=== PATIENT | female | born 1995 | race Caucasian/White ===

== ENCOUNTER 2023-10-05 08:00 | Outpatient (CLI) | payer OTHER ==
[2023-10-06 09:53] LABS: BILIRUBIN,URINE NEGATIVE (NEGATIVE); GLUCOSE, URINE (UA) NEGATIVE (NEGATIVE); KETONES,URINE (UA) 15 mg/dL (NEGATIVE); LEUKOCYTE ESTERASE, URINE NEGATIVE (NEGATIVE); NITRITE,URINE NEGATIVE (NEGATIVE); OCCULT BLOOD,URINE NEGATIVE (NEGATIVE); PROTEIN,URINE NEGATIVE (NEGATIVE); UROBILINOGEN,URINE 0.2 (NORMAL) E.U./dL (NORMAL)
[2023-10-06 10:13] LABS: BACTERIA,URINE Rare /HPF (None Seen); CLARITY,URINE CLEAR (CLEAR); RBC,URINE None Seen /HPF (0-5); SQUAMOUS EPITHELIAL CELL,UR RARE Squamous (<= Few); WBC,URINE 0-3 /HPF (0-5)
== END 2023-10-05 08:01 | disposition home or self-care (01) ==
LOC: LAB.WC 08:00
PROVIDERS: ATTEND Nurse Practitioner
DX: Z34.90 Encounter for supervision of normal pregnancy, unspecified, unspecified trimester (principal)
CPT/HCPCS: 81001; 87086

== ENCOUNTER 2023-10-16 10:37 | Outpatient (CLI) | payer OTHER ==
--- NOTE | 2023-10-16 11:48 | Ultrasound Report ---
PROCEDURE: OB First Trimester INDICATIONS: POSITIVE TEST OUTSIDE/PRIOR DATING DATA: Last menstrual period (LMP): 08/17/2023. LMP-based estimated date of delivery (ADALBERTO): 05/23/2024. First dating scan (date and location): Today's exam. Estimated date of delivery (ADALBERTO) from first dating scan: 05/26/2024. TECHNIQUE: Real-time scanning was performed of the fetus and maternal pelvic organs, with image documentation. COMPARISON: None. FINDINGS: Intrauterine gestational sac present. Embryo: Present, measuring 2.8 cm, corresponding to 7 weeks 6 days. Heart rate: 176 bpm. Other: No perigestational fluid collection. Measurement variability in dating: +/- 4 weeks by LMP, +/- 7 days by mean sac diameter (use before 6 weeks gestation if crown-rump length not able to be measured), +/- 5 days by crown-rump length (6-12 weeks gestation). Maternal organs: Ovaries appear within normal limits. IMPRESSION: Single living intrauterine at 7 weeks 6 days, ADALBERTO of 05/26/2024. Findings are concordant wit h clinical dating. Borderline tachycardia. Attention on follow-up. Reviewed by: Escobar Baird on 10/16/2023 11:47 AM PST Approved by: Escobar Baird on 10/16/2023 11:47 AM PST Station ID: [id number]
== END 2023-10-16 10:38 | disposition home or self-care (01) ==
LOC: DI 10:37
PROVIDERS: ATTEND Nurse Practitioner
DX: O36.8310 Maternal care for abnormalities of the fetal heart rate or rhythm, first trimester, not applicable or unspecified (principal); Z3A.01 Less than 8 weeks gestation of pregnancy

== ENCOUNTER 2023-11-02 08:00 | Outpatient (CLI) | payer OTHER ==
[2023-11-02 20:23] LABS: NEISSERIA GONORRHOEAE DNA NEGATIVE (NEGATIVE); TRICHOMONAS VAGINALIS DNA NEGATIVE (NEGATIVE)
[2023-11-02 20:31] LABS: CHLAMYDIA TRACHOMATIS DNA POSITIVE (NEGATIVE)
== END 2023-11-02 23:59 | disposition home or self-care (01) ==
LOC: LAB.WC 08:00
PROVIDERS: ATTEND Nurse Practitioner
DX: Z11.3 Encounter for screening for infections with a predominantly sexual mode of transmission (principal)
CPT/HCPCS: 87491; 87591; 87661

== ENCOUNTER 2023-11-02 11:32 | Outpatient (CLI) | payer OTHER ==
[2023-11-02 17:42] LABS: BASOPHILS # (AUTO) 0.1 10^3/uL (0.0-0.1); BASOPHILS % (AUTO) 0.5 %; EOSINOPHILS # (AUTO) 0.1 10^3/uL (0.0-0.7); EOSINOPHILS % (AUTO) 0.6 %; HCT - HEMATOCRIT 37.8 % (37.0-47.0); HGB - HEMOGLOBIN 12.5 g/dL (12.0-16.0); LYMPHOCYTES # (AUTO) 2.5 10^3/uL (1.5-3.5); LYMPHOCYTES % (AUTO) 20.4 %; MEAN CORPUSCULAR HEMOGLOBIN 31.8 pg (27.0-31.0); MEAN CORPUSCULAR HGB CONC 33.1 g/dL (32.0-36.0); MEAN CORPUSCULAR VOLUME 96.2 fL (81.0-99.0); MEAN PLATELET VOLUME 9.7 fL (7.9-10.8); MONOCYTES # (AUTO) 0.6 10^3/uL (0.0-1.0); MONOCYTES % (AUTO) 5.2 %; NEUTROPHILS % (AUTO) 72.9 %; PLT - PLATELET COUNT 320 10^3/uL (130-450); RED BLOOD COUNT 3.93 10^6/uL (4.20-5.40); RED CELL DISTRIBUTION WIDTH 12.1 % (12.0-15.0); WHITE BLOOD COUNT 12.4 x10^3/uL (4.8-10.8)
[2023-11-03 04:09] LABS: HBsAG SCREEN Negative (Negative)
[2023-11-03 06:10] LABS: RPR Non Reactive (Non Reactive)
[2023-11-03 07:10] LABS: HCV AB Non Reactive (Non Reactive); HIV SCREEN 4TH GENERATION Non Reactive (Non Reactive)
[2023-11-03 08:10] LABS: VARICELLA-ZOSTER AB IGG 595 index (Immune >165)
== END 2023-11-02 11:33 | disposition home or self-care (01) ==
LOC: LAB.N 11:32
PROVIDERS: ATTEND Nurse Practitioner
DX: Z34.90 Encounter for supervision of normal pregnancy, unspecified, unspecified trimester (principal)
CPT/HCPCS: 36415; 85025; 86592; 86762; 86787; 86803; 86850; 86900; 86901; 87340; 87389; 87491; 87591; 87661

== ENCOUNTER 2023-11-03 08:00 | Outpatient (CLI) | payer OTHER ==
[2023-11-03 20:34] LABS: NEISSERIA GONORRHOEAE DNA NEGATIVE (NEGATIVE); TRICHOMONAS VAGINALIS DNA NEGATIVE (NEGATIVE)
[2023-11-03 20:37] LABS: CHLAMYDIA TRACHOMATIS DNA POSITIVE (NEGATIVE)
== END 2023-11-03 23:59 | disposition home or self-care (01) ==
LOC: LAB.WC 08:00
PROVIDERS: ATTEND Nurse Practitioner
DX: Z11.3 Encounter for screening for infections with a predominantly sexual mode of transmission (principal)
CPT/HCPCS: 87491; 87591; 87661

== ENCOUNTER 2023-12-01 11:50 | Outpatient (CLI) | payer OTHER | END 2023-12-01 11:51 | disposition home or self-care (01) | LOC: LAB 11:50 | PROVIDERS: ATTEND Nurse Practitioner | DX: Z36.8A Encounter for antenatal screening for other genetic defects (principal) ==

== ENCOUNTER 2023-12-25 08:00 | Outpatient (CLI) | payer OTHER ==
[2023-12-25 20:25] LABS: CHLAMYDIA TRACHOMATIS DNA NEGATIVE (NEGATIVE); NEISSERIA GONORRHOEAE DNA NEGATIVE (NEGATIVE); TRICHOMONAS VAGINALIS DNA NEGATIVE (NEGATIVE)
== END 2023-12-25 23:59 | disposition home or self-care (01) ==
LOC: LAB.WC 08:00
PROVIDERS: ATTEND Nurse Practitioner
DX: O98.311 Other infections with a predominantly sexual mode of transmission complicating pregnancy, first trimester (principal); Z11.3 Encounter for screening for infections with a predominantly sexual mode of transmission
CPT/HCPCS: 87491; 87591; 87661

== ENCOUNTER 2024-01-03 09:07 | Outpatient (CLI) | payer OTHER ==
--- NOTE | 2024-01-03 21:11 | Ultrasound Report ---
PROCEDURE: OB 14+ Weeks INDICATIONS: SUPERVISION OF OUTSIDE/PRIOR DATING DATA: Last menstrual period (LMP): 08/17/2023. LMP-based estimated date of delivery (AADLBERTO): 05/23/2024. First dating scan (date and location): 10/16/2023. Estimated date of delivery (ADALBERTO) from first dating scan: 05/26/2024. The below data below was generated using the working ADALBERTO of 05/26/2024 TECHNIQUE: Ultrasound of the gravid uterus was performed and recorded. COMPARISON: None. FINDINGS: General: A single live intrauterine gestation is present. Presentation: Cephalic Placenta: Placental position is posterior without previa. Amniotic fluid index: 13.2 cm, 38.6% for gestational age. heart rate: 167 beats per minute. Maternal cervical canal: 3.2 cm long; normal length is 2.5 cm or more. biometrics: Biparietal diameter: 4.2 cm, 18 week 5 day, 11 percentile Head circumference: 15.8 cm, 18 week 5 day, 5 percentile Abdominal circumference: 13.7 cm 19 week 1 day, 22.8 percentile Femur length: 2.9 cm, 19 week 1 day, 20.2 percentile Estimated gestational age by working dates: 19 week 6 day Composite gestational age by current ultrasound: 18 week 6 day Estimated weight and percentile: 275 g, 12.6 percentile Measurement variability in biometric dating: +/- 10 days from 12-20 weeks gestation, +/- 2 weeks from 20-30 weeks gestation, +/- 3 weeks at 30 weeks gestation or more. Anatomic survey: Neuro: Ventricles are non-dilated at less than 10 mm. Cisterna magna is normal at 3-11 mm. Cerebel lum is normal in size and morphology. Nuchal skin fold: Normal at less than 6 mm between 14-20 weeks gestational age. Face: Nose and lips, facial profile are normal. Spine: No evidence for spina bifida. Heart: 4-chambered heart is present, with normal ventricular outflow tracts. Diaphragm: Diaphragm is intact. Stomach: Left-sided stomach is present. Kidneys: No hydronephrosis. Normal is less than 5 mm in 2nd trimester, less than 7 mm in 3rd trimester. Cord: 3-vessel cord has orthotopic insertion. Bladder: Normal in size. Extremities: All 4 extremities identified. Other: Not applicable. IMPRESSION: Single live intrauterine consistent with 18 week 6 day gestation by current ultrasound Normal anatomic survey Reviewed by: Spike Santos MD on 01/03/2024 8:10 PM [facility] Approved by: Spike Santos MD on 01/03/2024 8:10 PM [facility] Station ID: [id number]
== END 2024-01-03 09:08 | disposition home or self-care (01) ==
LOC: DI 09:07
PROVIDERS: ATTEND Nurse Practitioner
DX: Z34.92 Encounter for supervision of normal pregnancy, unspecified, second trimester (principal)

== ENCOUNTER 2024-02-20 10:13 | Outpatient (CLI) | payer OTHER ==
[2024-02-20 12:03] LABS: HCT - HEMATOCRIT 37.5 % (37.0-47.0); HGB - HEMOGLOBIN 12.3 g/dL (12.0-16.0); MEAN CORPUSCULAR HEMOGLOBIN 31.5 pg (27.0-31.0); MEAN CORPUSCULAR HGB CONC 32.8 g/dL (32.0-36.0); MEAN CORPUSCULAR VOLUME 96.2 fL (81.0-99.0); MEAN PLATELET VOLUME 10.2 fL (7.9-10.8); RED BLOOD COUNT 3.9 10^6/uL (4.20-5.40); RED CELL DISTRIBUTION WIDTH 12.2 % (12.0-15.0); WHITE BLOOD COUNT 9.5 x10^3/uL (4.8-10.8)
--- NOTE | 2024-02-20 15:43 | Ultrasound Report ---
PROCEDURE: OB Follow up INDICATIONS: POOR GROWTH OUTSIDE/PRIOR DATING DATA: Last menstrual period (LMP): 08/17/2023. LMP-based estimated date of delivery (ADALBERTO): 05/23/2024. First dating scan (date and location): 10/16/2023. Estimated date of delivery (ADALBERTO) from first dating scan: 05/26/2024. The below data below was generated using the clinical ADALBERTO of 05/23/2024 TECHNIQUE: Real-time scanning was performed of the fetus, with image documentation and biometric measurements. Endovaginal scanning: Not performed. COMPARISON: 01/03/2024. FINDINGS: General: A single living intrauterine gestation is present. Presentation: Variable Placenta: Placental position is posterior, without previa. Amniotic fluid index: 16.5 cm, within normal limits for gestational age. heart rate: 145 beats per minute. Maternal cervical canal: 4.2 cm long; normal length is 2.5 cm or more. biometrics: Biparietal diameter: 6.27 cm, 25 weeks 3 days, 7th percentile Head circumference: 23.4 cm, 25 weeks 2 days, 1.8 percentile Abdominal circumference: 22.7 cm, 27 weeks 1 day, 53.9 percentile Femur length: 4.73 cm, 25 weeks 6 days, 12.6 percentile Estimated gestational age from clinician: 26 weeks 5 days Composite gestational age from present scan: 26 weeks 0 days Estimated weight and percentile: None 126.3 g, 25th percentile Measurement variability in biometric dating: +/- 10 days from 12-20 weeks gestation, +/- 2 weeks from 20-30 weeks gestation, +/- 3 weeks at 30 weeks gestation or more. Other: Not applicable. IMPRESSION: 1. Living intrauterine at the junction between the second and third trimester 2. Current ultrasound age is 5 days less than clinical age based on LMP. 3. No evidence of complications. Reviewed by: Bimal Cintron MD on 02/20/2024 3:42 PM PDT Approved by: Bimal Cintron MD on 02/20/2024 3:42 PM PDT Station ID: [id number]
== END 2024-02-20 10:14 | disposition home or self-care (01) ==
LOC: DI 10:13
PROVIDERS: ATTEND Nurse Practitioner
DX: O36.5920 Maternal care for other known or suspected poor fetal growth, second trimester, not applicable or unspecified (principal); Z3A.26 26 weeks gestation of pregnancy
CPT/HCPCS: 36415; 82950; 85027

== ENCOUNTER 2024-04-01 08:00 | Outpatient (CLI) | payer OTHER ==
[2024-04-01 16:16] LABS: CREATININE,URINE 54.6 mg/dL; PROTEIN/CREATININE RATIO,URINE 0.2 (<=0.2)
== END 2024-04-01 23:59 | disposition home or self-care (01) ==
LOC: LAB.WC 08:00
PROVIDERS: ATTEND Nurse Practitioner
DX: R60.0 Localized edema (principal)
CPT/HCPCS: 82570; 84156

== ENCOUNTER 2024-04-26 08:00 | Outpatient (CLI) | payer OTHER | END 2024-04-26 23:59 | disposition home or self-care (01) | LOC: LAB.WC 08:00 | PROVIDERS: ATTEND Nurse Practitioner | DX: Z36.85 Encounter for antenatal screening for Streptococcus B (principal) | CPT/HCPCS: 87081; 87797 ==

== ENCOUNTER 2024-04-29 08:00 | Outpatient (CLI) | payer OTHER ==
[2024-04-29 22:22] LABS: CHLAMYDIA TRACHOMATIS DNA NEGATIVE (NEGATIVE); NEISSERIA GONORRHOEAE DNA NEGATIVE (NEGATIVE); TRICHOMONAS VAGINALIS DNA NEGATIVE (NEGATIVE)
== END 2024-04-29 23:59 | disposition home or self-care (01) ==
LOC: LAB.WC 08:00
PROVIDERS: ATTEND Nurse Practitioner
DX: Z11.3 Encounter for screening for infections with a predominantly sexual mode of transmission (principal)
CPT/HCPCS: 87491; 87591; 87661

== ENCOUNTER 2024-04-29 13:59 | Outpatient (CLI) | payer OTHER ==
--- NOTE | 2024-04-29 16:27 | Ultrasound Report ---
PROCEDURE: OB Follow up INDICATIONS: POOR GROWTH OUTSIDE/PRIOR DATING DATA: Last menstrual period (LMP): 08/17/2023. LMP-based estimated date of delivery (ADALBERTO): 05/23/2024. First dating scan (date and location): 10/16/2023. Estimated date of delivery (ADALBERTO) from first dating scan: 05/26/2024. The below data below was generated using the clinical ADALBERTO of 05/23/2024 TECHNIQUE: Real-time scanning was performed of the fetus, with image documentation and biometric measurements. Endovaginal scanning: Not performed. COMPARISON: 02/20/2024. FINDINGS: General: A single living intrauterine gestation is present. Presentation: Breech Placenta: Placental position is posterior, without previa. Amniotic fluid index: 8.7 cm, within normal limits for gestational age. heart rate: 140 beats per minute. Maternal cervical canal: 4 cm long; normal length is 2.5 cm or more. biometrics: Biparietal diameter: 7.8 cm, 31 weeks 2 days, less than 1st percentile Head circumference: 31.7 cm, 35 weeks 4 days, 7th percentile Abdominal circumference: 30.4 cm, 34 weeks 3 days, 9th percentile Femur length: 6.4 cm, 33 weeks 1 day, 1st percentile Estimated gestational age from initial scan: 36 weeks, 4 days Composite gestational age from present scan: 33 weeks, 4 days Estimated weight and percentile: 2284 g, 4th percentile Measurement variability in biometric dating: +/- 10 days from 12-20 weeks gestation, +/- 2 weeks from 20-30 weeks gestation, +/- 3 weeks at 30 weeks gestation or more. Other: Cord S/D ratios range from 3.1-3.3.. IMPRESSION: 1.Single live intrauterine consistent with 33 weeks and 4 days. 2.Estimated weight is in the 4th percentile. 3.Amniotic fluid index of 8.7 cm. 4.Umbilical cord Doppler S/D ratios range from 3.1-3.3. Reviewed by: Herson Kim MD on 04/29/2024 4:26 PM PDT Approved by: Herson Kim MD on 04/29/2024 4:26 PM PDT Station ID: [id number]
== END 2024-04-29 14:00 | disposition home or self-care (01) ==
LOC: DI 13:59
PROVIDERS: ATTEND Nurse Practitioner
DX: O36.5930 Maternal care for other known or suspected poor fetal growth, third trimester, not applicable or unspecified (principal); Z3A.33 33 weeks gestation of pregnancy; Z11.3 Encounter for screening for infections with a predominantly sexual mode of transmission
CPT/HCPCS: 87491; 87591; 87661

== ENCOUNTER 2024-05-08 21:45 | Inpatient (IN) | payer OTHER ==
[2024-05-08] MEDS: LACTATED RINGERS 1,000 ML IV ONE (00:15)
[2024-05-08] MEDS ORDERED: AZITHROMYCIN INJ 500 MG in SODIUM CHLORIDE 0.9% 250 ML IV ONE (22:05)
[2024-05-08] MEDS ORDERED: ceFAZolin (2G) 2 GM in SODIUM CHLORIDE 0.9% MINIBAG 100 ML IV ONE (22:05)
--- NOTE | 2024-05-08 22:09 | HISTORY & PHYSICAL EXAMINATION ---
Admit History - Visit Reason Visit Reason: Membranes rupture - : 1 Parity: 0 Complications This : positive: Other (Breech presentation) - Mother's Labs Mother's Blood Type: positive: O Mother's RH: positive: Positive GBS: positive: Group B Strep Positive Rubella Status: positive: Immune - Other Maternal History Other Maternal History: HPI: Patient is a 29-year-old G1, P0 at 37 weeks 6 days gestation presenting for rupture of membranes and breech presentation. She had rupture membranes shortly after 2100. She has good movement. No GAONA/BV or RUQP. No vaginal bleeding. Denies nausea and vomiting. Denies urinary urgency or dysuria. All other symptoms reviewed and were negative except per HPI. Course G1PO LMP: 08/17/2023 ADALBERTO by LMP: 05/23/2024 10/16/2023 / 7+6 /C/W dates Final ADALBERTO: 05/23/2024 FOB: Kirk Dinh Children: Lives with Kirk's 6 yo daugter sex: BABY BOY! Problems: Anxiety, ADHD (managed without medication)- CORNEL letter + chlamydia [id number], NEG chlamydia 12/25/23 Pre- Weight:158.8 BMI: 30.11 Blood type: O+ Rh: + Antibody: negative CBC: PLT 320 HCT 37.8 HGB 12.5 RUB: immune VZV: immune HBsAg: negative HepC: non-reactive RPR/AB-EIA: N-R HIV: non-reactive PAP: 2020 normal GC/CT: + and treated [id number] HSV:GENITAL HSV 1 Genetic testing: MaterniT- screen negative, AFP ordered 12/31/2023 Covid: infection over [place] (mild) Flu: received 11/02/2023 FAS: 01/03/2024 @18+6 Placenta: Posterior Cord: 3VC JEFFREY: 13.2 EFW: 275g 12.6%tile 50gm OGCT: 115 3HR GTT: TDAP: Given 03/04/24 Breast Pump: 03/04/24 3rd trimester PLT: 267 HCT 37.5 HGB 12.3 GBS: 04/26 Positive Delivery plan: Contraception: lo lo estrin PMH Vulvovaginal HSV Asthma PSH No previous surgeries OB History G1, P0 SH Denies tobacco, alcohol, drugs Family History Mother: Hypertension Maternal grandmother: Thyroid disorder Brother: Thyroid disorder Allergies No known drug allergies Medications Acyclovir 400 mg 3 times a day vitamins Physical exam: General: Alert, oriented, no acute distress Head: Normal cephalic atraumatic Eyes: PERRLA, extraocular motions intact. Respiratory: Normal rate of respiration. No accessory muscle use, normal respiratory effort. Cardiovascular: Regular rate and rhythm Abdomen: Gravid, nontender, nondistended Extremities: Normal range of motion Neuro: Oriented x3. Normal movements Psych: Appropriate mood and affect. Normal judgment and insight : Grossly ruptured SVE: 0/0/-3 FHT: 140 bpm baseline, moderate variability, accelerations present, occasional variable deceleration [place]: occasional Plan 29-year-old G1, P0 at 37 weeks 6 days gestation admitted for term labor with rupture of membranes with breech presentation 1. Breech presentation -Plan for primary low-transverse section for malpresentation and roel breech position. -2 g cefazolin, 500 mg azithromycin. - section was recommended. Risks, benefits and alternatives were discussed including but not limited to infection, bleeding that may require blood products or hysterectomy for life saving measures, injury to surrounding organs including but not limited to bowel, bladder, ureters, tubes and ovaries and/or the baby. Should injury occur it could require longer/additional surgery to repair. The patient stated understanding and desired to proceed. All questions were answered posed by patient. 2. Term labor/SROM 3. 37 weeks gestation 4. Vulvovaginal HSV -appropriately on prophylaxis Plan for Labor - Plan For Labor I expect patient to be DC'd or transferred within 96 hours.: Yes
[2024-05-08 22:35] LABS: BASOPHILS # (AUTO) 0.1 10^3/uL (0.0-0.1); BASOPHILS % (AUTO) 0.5 %; EOSINOPHILS # (AUTO) 0.2 10^3/uL (0.0-0.7); EOSINOPHILS % (AUTO) 1.5 %; HCT - HEMATOCRIT 37.1 % (37.0-47.0); HGB - HEMOGLOBIN 12.5 g/dL (12.0-16.0); LYMPHOCYTES # (AUTO) 3.3 10^3/uL (1.5-3.5); LYMPHOCYTES % (AUTO) 25.7 %; MEAN CORPUSCULAR HEMOGLOBIN 31.7 pg (27.0-31.0); MEAN CORPUSCULAR HGB CONC 33.7 g/dL (32.0-36.0); MEAN CORPUSCULAR VOLUME 94.2 fL (81.0-99.0); MEAN PLATELET VOLUME 11.8 fL (7.9-10.8); MONOCYTES # (AUTO) 0.9 10^3/uL (0.0-1.0); MONOCYTES % (AUTO) 6.9 %; NEUTROPHILS # (AUTO) 8.3 10^3/uL (1.5-6.6); NEUTROPHILS % (AUTO) 65.1 %; PLT - PLATELET COUNT 222 10^3/uL (130-450); RED BLOOD COUNT 3.94 10^6/uL (4.20-5.40); RED CELL DISTRIBUTION WIDTH 12.3 % (12.0-15.0); WHITE BLOOD COUNT 12.7 x10^3/uL (4.8-10.8)
[2024-05-08] MEDS ORDERED: METHYLERGONOVINE 0.2 MG/ML VIAL ONE (22:40)
[2024-05-08] MEDS ORDERED: CARBOPROST TROMETHAMINE 250 MCG/ML VIAL IM ONE (22:40)
[2024-05-08] MEDS ORDERED: miSOPROStoL 200 MCG TABLET ONE (22:40)
[2024-05-08] MEDS ORDERED: PHENYLEPHRINE 10 MG/ML VIAL ONE (22:40)
[2024-05-08] MEDS ORDERED: MORPHINE PF 5 MG/10 ML VIAL ONE (22:42)
[2024-05-08] MEDS ORDERED: fentaNYL 100 MCG/2 ML VIAL ONE (22:42)
[2024-05-08] MEDS ORDERED: OXYTOCIN 10 UNIT/ML VIAL ONE (23:10)
[2024-05-08] MEDS ORDERED: OXYTOCIN/SODIUM CHLORIDE 500 ML IV ONE (23:11)
[2024-05-08] MEDS ORDERED: DEXMEDETOMIDINE 200 MCG/2 ML VIAL ONE (23:16)
[2024-05-08] MEDS ORDERED: ONDANSETRON 4 MG/2 ML VIAL ONE (23:25)
[2024-05-08] MEDS ORDERED: KETOROLAC 30 MG/ML VIAL ONE (23:45)
[2024-05-08] MEDS ORDERED: ONDANSETRON ODT 4 MG TABLET TL PRN ×2 (23:50)
[2024-05-08] MEDS ORDERED: oxyCODONE 5 MG TABLET PO PRN (23:50)
[2024-05-08] MEDS ORDERED: OXYTOCIN/SODIUM CHLORIDE 500 ML IV PRN (23:50)
[2024-05-08] MEDS ORDERED: SIMETHICONE CHEW 80 MG TABLET PO PRN (23:50)
[2024-05-08] MEDS ORDERED: SODIUM CHLORIDE FLUSH 0.9% 10 ML SYRINGE IVP PRN (23:50)
--- NOTE | 2024-05-08 23:55 | OPERATIVE REPORT ---
Operative Report - General Admit Date: 05/08/24 Procedure Date: 05/08/24 Planned Procedure: Primary low-transverse section Pre-Op Diagnosis: Breech presentation, rupture of membranes Procedure Performed: Primary low-transverse section Post Op Diagnosis: Breech presentation, rupture of membranes - Procedure Note Primary Surgeon: Darío Ferrera MD Secondary Surgeon: BARRY Hein Anesthesia Provider: Helen Myers CRNA Anesthesia Technique: Spinal Pathology: None Estimated Blood Loss (mL): 600 Findings: Normal-appearing uterus, tubes, ovaries. Fetus in roel breech presentation with minimal fluid upon hysterotomy. Apgars of 8/9 - Other Other Information/Narrative: Patient was admitted at 37 weeks gestation for rupture of membranes and breech presentation. She had a category 2 tracing with intermittent variable decelerations. She was consented for section and proceeded to the OR. Prior to surgery, 2 g of cefazolin and 500 mg azithromycin were administered. The patient was taken to the operating room where regional anesthesia was found to be adequate. She was then prepared and draped in the usual sterile fashion in the dorsal supine position with a leftward tilt displacing the uterus. Shahid was draining to gravity. SCDs were on bilateral lower extremities. Time out was taken. A pfannenstiel skin incision was then made with the scalpel and carried through to the underlying layer of fascia. The fascia was incised in the midline and the incision extended laterally with the Jacinto scissors. The superior aspect of the facial incision was then grasped with the Micki clamps, elevated and the underlying rectus muscles dissected off sharply. Attention was then turned to the inferior aspect of this incision which in a similar fashion was grasped, elevated with the Micki clamps and the rectus muscle dissected off sharply. The rectus muscles were in the midline. The peritoneum identified, grasped with the pick-ups and entered sharply with the Metzenbaum scissors. The peritoneal incision was then extended superiorly and inferiorly with good visualization of the bladder. The bladder blade was inserted. The vesicouterine peritoneum was identified, grasped with the pick-ups, and entered sharply with Metzenbaum scissors. This incision was then extended laterally and the bladder flap created digitally. The bladder blade was reinserted. The lower uterine segment was identified and incised in a transverse fashion with the scalpel. The uterine incision was then extended bluntly laterally. There is minimal fluid upon hysterotomy. The bladder blade was removed. The fetus was in a roel breech presentation, and the pelvis was removed through the hysterotomy, the hips were held and brought through the hysterotomy. The legs extended upon reaching hysterotomy, the right arm was then rotated anteriorly, flexed, medial rotated, and extended through the hysterotomy. This was similarly done on the left side. head easily passed subsequently. The infants mouth and nose were bulb suctioned. The umbilical cord was clamped times two and cut. The was handed to the pediatric team. The placenta was removed with gentle traction. Oxytocin was added to the IV fluid and was allowed to run freely. The uterus was exteriorized and cleared of all clots and debris. The uterine incision was inspected and found to be without any extensions and was repaired with 0 Vicryl in a running, locked fashion. A second imbricating layer was performed. Upon inspection, the repaired hysterotomy was found to be hemostatic. The uterus was firm and returned to the abdomen. The gutters were cleared of all clots and debris. The muscle layer was examined and found to be hemostatic. The fascia was reapproximated with 0 Vicryl in a running fashion. The subcutaneous tissue was closed with 2-0 Vicryl. The skin was closed in a subcuticular fashion with 4-0 Monocryl. The patient tolerated the procedure well. Sponge, lap and needle counts were correct times three. The patient was taken to the recovery room in stable condition. I appreciate the assistance of Stephanie Brandon during this procedure, and the assistance in retraction, visualization, dissection, and overall assistance during the case were instrumental to the patient's wellbeing. weight: Pending
[2024-05-09] MEDS ORDERED: NALOXONE 0.4 MG/ML VIAL IVP PRN ×2 (00:23)
[2024-05-09] MEDS ORDERED: NALBUPHINE 10 MG/ML AMP IVP PRN (00:23)
[2024-05-09] MEDS ORDERED: MORPHINE 2 MG/ML CARPUJECT IVP PRN (00:23)
[2024-05-09] MEDS ORDERED: ATROPINE ABBOJECT 1 MG/10 ML SYRINGE IVP PRN (00:23)
[2024-05-09] MEDS ORDERED: diphenhydrAMINE INJ 50 MG/ML VIAL IVP PRN (00:23)
[2024-05-09] MEDS ORDERED: HYDROmorphone 0.5 MG/0.5 ML SYRINGE IVP PRN (00:23)
[2024-05-09] MEDS ORDERED: fentaNYL 100 MCG/2 ML VIAL IVP PRN (00:23)
[2024-05-09] MEDS ORDERED: ONDANSETRON 4 MG/2 ML VIAL IVP PRN (00:23)
[2024-05-09] MEDS ORDERED: SODIUM CHLORIDE FLUSH 0.9% 10 ML SYRINGE IVP SCH (01:00)
[2024-05-09] MEDS ORDERED: LACTATED RINGERS 1,000 ML IV SCH (01:00)
[2024-05-09] MEDS: LACTATED RINGERS 1,000 ML IV SCH ×2 (03:08→08:10)
[2024-05-09 05:39] LABS: BASOPHILS % (AUTO) 0.2 %; EOSINOPHILS # (AUTO) 0.1 10^3/uL (0.0-0.7); EOSINOPHILS % (AUTO) 0.4 %; HCT - HEMATOCRIT 32.8 % (37.0-47.0); HGB - HEMOGLOBIN 11.5 g/dL (12.0-16.0); LYMPHOCYTES # (AUTO) 2.1 10^3/uL (1.5-3.5); LYMPHOCYTES % (AUTO) 12.7 %; MEAN CORPUSCULAR HEMOGLOBIN 32.6 pg (27.0-31.0); MEAN CORPUSCULAR HGB CONC 35.1 g/dL (32.0-36.0); MEAN CORPUSCULAR VOLUME 92.9 fL (81.0-99.0); MEAN PLATELET VOLUME 11.5 fL (7.9-10.8); NEUTROPHILS # (AUTO) 13.2 10^3/uL (1.5-6.6); NEUTROPHILS % (AUTO) 80.3 %; PLT - PLATELET COUNT 189 10^3/uL (130-450); RED BLOOD COUNT 3.53 10^6/uL (4.20-5.40); RED CELL DISTRIBUTION WIDTH 12.3 % (12.0-15.0); WHITE BLOOD COUNT 16.4 x10^3/uL (4.8-10.8)
[2024-05-09] MEDS: KETOROLAC 30 MG/ML VIAL IVP SCH (05:53)
[2024-05-09] MEDS: ACETAMINOPHEN 500 MG TABLET PO SCH (05:55)
[2024-05-09] MEDS: ONDANSETRON 4 MG/2 ML VIAL IVP PRN (06:50)
[2024-05-09] MEDS: LACTATED RINGERS 500 ML IV ONE (07:53)
[2024-05-09] MEDS: METOCLOPRAMIDE 10 MG/2 ML VIAL IVP PRN (08:50)
--- NOTE | 2024-05-09 09:10 | ANESTHESIA POST OP EVALUATION ---
Anesthesia Post Eval - Post Anesthesia Eval Vitals: Last Vital Signs Temp 36.7 C 05/09/24 06:10 Pulse 72 05/09/24 06:10 Resp 22 05/09/24 06:10 BP 102/68 05/09/24 06:10 Pulse Ox 98 05/09/24 06:10 O2 Flow Rate CV Function Including HR & BP: Stable Pain Control: Satisfactory Nausea & Vomiting: Negative Mental Status: Baseline Respiratory Status: Airway Patent Hydration Status: Satisfactory Anesthesia Complications: None
--- NOTE | 2024-05-09 09:10 | ANESTHESIA ---
Pre-Anesthesia VS, & Labs - Diagnosis Breech presentation, SROM - Procedure primary c/s Vital Signs: Temp Pulse Resp BP Pulse Ox O2 Flow Rate 36.7 C 72 22 102/68 98 05/09/24 06:10 05/09/24 06:10 05/09/24 06:10 05/09/24 06:10 05/09/24 06:10 Height: 5 ft 1 in Weight (kg): 90.265 kg Body Mass Index: 37.5 BMI Classification: Obese - NPO Last Food Intake: 1999 - Is Patient ?: Yes - Lab Results Current Lab Results: Laboratory Tests 05/09/24 05:28: WBC 16.4 H, RBC 3.53 L, Hgb 11.5 L, Hct 32.8 L, MCV 92.9, MCH 32.6 H, MCHC 35.1, RDW 12.3, Plt Count 189, MPV 11.5 H, Neut # (Auto) 13.2 H, Lymph # (Auto) 2.1, [place] # (Auto) 1.0, Eos # (Auto) 0.1, Baso # (Auto) 0.0, Absolute Nucleated RBC 0.00, Nucleated RBC % 0.0 05/08/24 22:15: Blood Type O POSITIVE, Antibody Screen NEGATIVE 05/08/24 22:15: WBC 12.7 H, RBC 3.94 L, Hgb 12.5, Hct 37.1, MCV 94.2, MCH 31.7 H , MCHC 33.7, RDW 12.3, Plt Count 222, MPV 11.8 H, Neut # (Auto) 8.3 H, Lymph # (Auto) 3.3, [place] # (Auto) 0.9, Eos # (Auto) 0.2, Baso # (Auto) 0.1, Absolute Nucleated RBC 0.00, Nucleated RBC % 0.0 Lab results reviewed: Yes Fish Bones: 05/09/24 05:28 Home Medications and Allergies Active Medications Acetaminophen (Acetaminophen 500 Mg Tablet) 1,000 mg PO Q8H ON LICENSE OF [facility] Last Admin: 05/09/24 05:55 Dose: 1,000 mg Diphenhydramine HCl (Diphenhydramine Inj 50 Mg/Ml Vial) 12.5 mg IVP Q6H PRN PRN Reason: ITCHING Stop: 05/10/24 00:24 Docusate Sodium (Docusate Sodium 100 Mg Capsule) 100 mg PO BID ON LICENSE OF [facility] Fentanyl (Fentanyl 100 Mcg/2 Ml Vial) 15 mcg IT ONCE ONE Stop: 05/09/24 22:59 Lactated Ringer's (Lr) 1,000 mls @ 125 mls/hr IV .Q8H ON LICENSE OF [facility] Last Admin: 05/09/24 08:10 Dose: 125 mls/hr Lactated Ringer's (Lr) 1,000 mls @ 100 mls/hr IV .Q10H ON LICENSE OF [facility] Last Admin: 05/09/24 03:08 Dose: 100 mls/hr Oxytocin/Sodium Chloride (Pitocin/Sodium Chloride) 500 mls @ 999 mls/hr IV PRN PRN; Protocol PRN Reason: POST- HEMORR PREVENTION Ibuprofen (Ibuprofen 600 Mg Tablet) 600 mg PO Q6H ON LICENSE OF [facility] Ketorolac Tromethamine (Ketorolac 30 Mg/Ml Vial) 30 mg IVP Q6H ON LICENSE OF [facility] Stop: 05/09/24 18:01 Last Admin: 05/09/24 05:53 Dose: 30 mg Metoclopramide HCl (Metoclopramide 10 Mg/2 Ml Vial) 5 mg IVP Q6HR PRN PRN Reason: Nausea / Vomiting Last Admin: 05/09/24 08:50 Dose: 5 mg Morphine Sulfate (Morphine Pf 5 Mg/10 Ml Vial) 0.1 mg IT ONCE ONE Stop: 05/09/24 22:59 Nalbuphine HCl (Nalbuphine 10 Mg/Ml Amp) 5 mg IVP Q4H PRN PRN Reason: ITCHING Stop: 05/10/24 00:24 Naloxone HCl (Naloxone 0.4 Mg/Ml Vial) 0.1 mg IVP Q2M PRN PRN Reason: RR < 8 Stop: 05/10/24 00:24 Ondansetron HCl (Ondansetron Odt 4 Mg Tablet) 4 mg TL Q4H PRN PRN Reason: Nausea / Vomiting Ondansetron HCl (Ondansetron Odt 4 Mg Tablet) 4 mg TL Q6HR PRN PRN Reason: Nausea / Vomiting Ondansetron HCl (Ondansetron 4 Mg/2 Ml Vial) 4 mg IVP Q6HR PRN PRN Reason: Nausea / Vomiting Stop: 05/10/24 00:24 Last Admin: 05/09/24 06:50 Dose: 4 mg Oxycodone HCl (Oxycodone 5 Mg Tablet) 5 mg PO Q4HR PRN PRN Reason: PAIN Simethicone (Simethicone Chew 80 Mg Tablet) 80 mg PO TID PRN PRN Reason: Gas Sodium Chloride (Sodium Chloride Flush 0.9% 10 Ml Syringe) 10 ml IVP 0100,0900,1700 MASTER Sodium Chloride (Sodium Chloride Flush 0.9% 10 Ml Syringe) 10 ml IVP PRN PRN PRN Reason: NEEDED PER PROVIDER ORDERS Allergies/Adverse Reactions: Allergies Allergy/AdvReac Type Severity Reaction Status Date / Time No Known Drug Allergies Allergy Verified 05/08/24 22:31 Anes History & Medical History - Anesthetic History Family history of Anesthesia Complications: Denies Family history of Malignant Hyperthermia: Denies - Medical History Cardiovascular: reports: None Pulmonary: reports: None Gastrointestinal: reports: None Urinary: reports: None Neuro: reports: None Musculoskeletal: reports: None Endocrine/Autoimmune: reports: None Blood Disorders: reports: None Skin: reports: None Smoking Status: Never smoker Psychosocial: reports: No issues indicated History of Cancer?: No - Obstetrical History : 1 Parity: 0 Complications: reports: Other (Breech presentation) Exam General: Alert, Oriented x3, Cooperative, No acute distress Dental: WNL Mouth Openin Fingerbreadth Neck Mobility: Normal Mallampati classification: I Thyromental Distance: 4-6 cm Mental/Cognitive Status: Alert/Oriented X3, Normal for patient Plan Anesthesia Type: Spinal Consent for Procedure(s) Verified and Reviewed: Yes Code Status: Attempt Resuscitation ASA classification: 2-Mild systemic disease Is this case an emergency?: Yes
--- NOTE | 2024-05-09 12:34 | PHARMACY PROGRESS NOTE ---
- Best Possible Medication History Admit Date and Time: 05/08/24 9345 Processed by: Pharmacy Medications reviewed in ED?: No Medication History completed: Yes Patient Interview: Pt unable to participate Secondary Source(s): Physician records, Insurance records As the person ultimately responsible for medication therapy, providers are able to order a medication from an existing home medication list in [facility] via the "Reconcile Routine" prior to Confirmation of that medication by physician support coordinator. Such practice is discouraged except when the physician, in their clinical judgment, deems that a medical need exists for a medication without regard to previous use.
--- NOTE | 2024-05-09 16:35 | PROVIDER PROGRESS NOTE ---
Subjective - Subjective Subjective: Subjective Patient reports she is doing well. Lochia appropriate. Denies heavy bleeding. Ambulating. Pelvic and abdominal pain well-controlled. Tolerating oral intake. Diet: Regular. Voiding without difficulty. Passing flatus. Denies BM. Patient is bonding with baby in room Breast feeding going well. Denies feeling lightheaded, dizzy or excessively fatigued. Objective General: Alert, oriented, no apparent distress. Cardiovascular: Regular rate. Regular rhythm. Lungs: No increased work of breathing. Abdomen: Uterus firm. Below umbilicus. No guarding or rebound. Extremities: No pain on palpation. No cords palpated. Distal pulses intact. Incision: Bandage in place. Assessment and Plan day 1. -Routine care -Anticipate discharge in two days Status post primary low transverse section. -routine postoperative care. Objective - Vital Signs/Intake & Output Vital Signs: Vital Signs x48h Temp Pulse Resp BP Pulse Ox 05/09/24 14:25 97.9 F 64 16 105/62 98 05/09/24 10:20 96.8 F L 65 16 97/56 L 95 Intake & Output: Intake & Output 05/06/24 05/07/24 05/08/24 05/09/24 23:59 23:59 23:59 23:59 Intake Total 400 Output Total 1759 Balance -1359 - Lab Results Fish Bones: 05/09/24 05:28 Other Labs: Lab Results x24hrs 05/09/24 05/08/24 05/08/24 Range/Units 05:28 22:15 22:15 WBC 16.4 H 12.7 H (4.8-10.8) x10^3/uL RBC 3.53 L 3.94 L (4.20-5.40) 10^6/uL Hgb 11.5 L 12.5 (12.0-16.0) g/dL Hct 32.8 L 37.1 (37.0-47.0) % MCV 92.9 94.2 (81.0-99.0) fL MCH 32.6 H 31.7 H (27.0-31.0) pg MCHC 35.1 33.7 (32.0-36.0) g/dL RDW 12.3 12.3 (12.0-15.0) % Plt Count 189 222 (130-450) 10^3/uL MPV 11.5 H 11.8 H (7.9-10.8) fL Neut # (Auto) 13.2 H 8.3 H (1.5-6.6) 10^3/uL Lymph # (Auto) 2.1 3.3 (1.5-3.5) 10^3/uL [place] # (Auto) 1.0 0.9 (0.0-1.0) 10^3/uL Eos # (Auto) 0.1 0.2 (0.0-0.7) 10^3/uL Baso # (Auto) 0.0 0.1 (0.0-0.1) 10^3/uL Absolute Nucleated RBC 0.00 0.00 x10^3/uL Nucleated RBC % 0.0 0.0 /100WBC Blood Type O POSITIVE Antibody Screen NEGATIVE
[2024-05-09] MEDS: DOCUSATE SODIUM 100 MG CAPSULE PO SCH (22:43)
[2024-05-09] MEDS ORDERED: MORPHINE PF 5 MG/10 ML VIAL IT ONE (22:58)
[2024-05-09] MEDS ORDERED: fentaNYL 100 MCG/2 ML VIAL IT ONE (22:58)
[2024-05-10] MEDS: IBUPROFEN 600 MG TABLET PO SCH (00:43)
--- NOTE | 2024-05-10 12:58 | PROVIDER PROGRESS NOTE ---
Subjective - Prog Note Date Prog Note Date: 05/10/24 Prog Note Time: 12:51 - Subjective Subjective: SUBJECTIVE: Cindy reports she feels well. Pain is well controlled with current medications, using only tylenol and motrin. She is ambulating well. Tolerating regular diet without N/V. She is voiding without difficulty. Lochia < menses. She reports + flatus. She is with RN support. OBJECTIVE: GENERAL: NAD, sitting in recliner infant CHEST: non labored respirations ABDOMEN: Soft, appropriately tender, no significant distention. Fundus is firm. INCISION: Dressing intact with no shadowing. EXT: trace LE edema. No evidence of DVT. ASSESSMENT: - POD #2 s/p pLTCS, doing well. PLAN: - Continue current care. Infant not ready for discharge today. Anticipate discharge home tomorrow. Objective - Vital Signs/Intake & Output Vital Signs: Vital Signs x48h Temp Pulse Pulse Resp BP Pulse Ox 05/10/24 12:00 98.1 F 80 16 111/66 98 05/10/24 08:00 97.9 F 70 16 111/65 98 05/10/24 05:21 97.5 F L 72 16 Intake & Output: Intake & Output 05/07/24 05/08/24 05/09/24 05/10/24 23:59 23:59 23:59 23:59 Intake Total 1250 1000 Output Total 2834 Balance -1584 1000 - Lab Results Fish Bones: 05/09/24 05:28
[2024-05-10] MEDS: ACETAMINOPHEN 500 MG TABLET PO ONE (13:55)
[2024-05-11 00:32] VITALS: O2SAT 99
--- NOTE | 2024-05-11 09:28 | DISCHARGE SUMMARY ---
"Discharge Summary Admit Date: 05/08/24 Discharge Date: 05/11/24 Discharging Provider: Shahana Jeffrey MD Code Status: Attempt Resuscitation Condition at Discharge: Good Discharge Disposition: 01 Home, Self Care - DIAGNOSES Admission Diagnoses: SIUP at 37w6d Breech presentation Ruptured membranes IUGR 4%tile GBS pos Rh + Rubella immune Discharge Diagnoses with Status of Each Condition: Same s/p primary LTCS - CONSULTS | PROCEDURES Procedures: Primary LTCS - HOSPITAL COURSE Hospital Course: Cindy is a 29 yo who presented at 37w6d with term labor and ruptured membranes with breech presentation. She underwent primary LTCS with EBL of 600cc. Her course was uncomplicated. She is discharged home on POD#3 meeting postoperative milestones. Today, on day of discharge, Cindy reports she is feeling well. Pain is well controlled with tylenol and motrin. She is tolerating regular diet, ambulating without difficulty, and passing flatus. She is infant. Feels ready to go home today. - ALLERGIES Allergies/Adverse Reactions: Allergies Allergy/AdvReac Type Severity Reaction Status Date / Time No Known Drug Allergies Allergy Verified 05/08/24 22:31 - MEDICATIONS Home Medications: Ambulatory Orders Medication Instructions Recorded Confirmed Acyclovir 400 mg PO TID 05/09/24 05/09/24 Pnv No.95/Ferrous Fum/Folic AC 1 tab PO DAILY 05/09/24 05/09/24 [ Tablet] Acetaminophen [Tylenol] 650 mg PO Q6H PRN #30 tab 05/11/24 Ibuprofen [Motrin] 600 mg PO Q6H PRN #30 tab 05/11/24 Oxycodone HCl 5 mg PO Q6HR PRN #8 cap 05/11/24 Sennosides/Docusate Sodium [Senna 1 each PO BID PRN #14 cap 05/11/24 Plus 8.6-50 mg Softgel] - PHYSICAL EXAM AT DISCHARGE Physical Exam Other/Comments: Gen: NAD, ambulatory around room Chest: non labored respirations Abd: soft, appropriately TTP, fundus firm, non-distended, no rebound/guarding Ext: trace LE edema, no evidence of DVT - LABS Result Diagrams: 05/09/24 05:28 - FOLLOW UP Follow Up: Call clinic on Monday for 1 week postop/ visit"
[2024-05-11 12:30] VITALS: BP 123/68
--- NOTE | 2024-05-11 19:10 | Labor Flowsheet ---
Labor Flowsheet Datetime Report Generated by CPN: 05/11/2024 19:10 Datetime: 05/09/2024 04:22 Membranes Ruptured Date/Time: 05/08/2024 21:00 Amniotic Fluid Odor: Normal Datetime: 05/08/2024 22:01 VAGINAL EXAM Membrane Status: Ruptured Membranes Rupture Method: Spontaneous Amniotic Fluid Color: Clear Amniotic Fluid Amount: Moderate Membrane Comments: SROM 2100 Datetime: 05/08/2024 21:59 VITAL SIGNS NBP Sys/Elena/Mean (mmHg): 132 : 87 : 98 Pulse: 85
== END 2024-05-11 18:20 | disposition home or self-care (01) | DRG 787 ==
LOC: WFO 21:45 → FBP 21:49 → WFO 22:05 → FBP 22:05
PROVIDERS: ADMIT Obstetrics & Gynecology; ATTEND Obstetrics & Gynecology
PROC: 10D00Z1 Extraction of Products of Conception, Low, Open Approach (ICD-10-PCS; principal; 2024-05-08 22:30)
DX: O32.1XX0 Maternal care for breech presentation, not applicable or unspecified (principal); O98.32 Other infections with a predominantly sexual mode of transmission complicating childbirth; Z3A.37 37 weeks gestation of pregnancy; Z37.0 Single live birth; O99.824 Streptococcus B carrier state complicating childbirth; O36.5930 Maternal care for other known or suspected poor fetal growth, third trimester, not applicable or unspecified; A60.04 Herpesviral vulvovaginitis; Z79.899 Other long term (current) drug therapy
CPT/HCPCS: 36415; 85025; 86850; 86900; 86901; 99215; A9270; J2274; J2765; J7120